=== PATIENT | female | born 1985 ===

== ENCOUNTER 2024-02-19 14:34 | Emergency (ER) | payer OTHER ==
[~2024-02-19] VITALS: Ht 149.9 cm; Wt 65.7 kg
[2024-02-19] MEDS ORDERED: BACTRIM DS TAB1 EACH PO (15:05)
[2024-02-19] MEDS ORDERED: CLEOCIN HCL300 MG PO (18:03)
[2024-02-19 18:35] VITALS: BP 129/78
== END 2024-02-19 18:38 | disposition home or self-care (01) ==
LOC: ED 14:34
DX: L02.11 Cutaneous abscess of neck (principal); J45.909 Unspecified asthma, uncomplicated; Z88.0 Allergy status to penicillin; Z88.8 Allergy status to other drugs, medicaments and biological substances
CPT/HCPCS: 10060; 99283-25